=== PATIENT | male | born 1955 | race Caucasian/White ===

== ENCOUNTER 2025-06-24 16:40 | Emergency (ER) | payer OTHER ==
[~2025-06-24] VITALS: Ht 172.7 cm; Wt 75.0 kg
[2025-06-24 17:13] VITALS: O2SAT 95
[2025-06-24] MEDS ORDERED: LIDO1ADH16 TP (20:53)
[2025-06-24] MEDS ORDERED: CYCL10TA21 MT (20:53)
[2025-06-24] MEDS: ACETAMINOPHEN WITH CODEINE 300/30MG TABLET PO ONE (20:56)
[2025-06-24 21:13] VITALS: BP 160/83; PULSE 67; RESP 16; TEMP 37.2; O2SAT 97
== END 2025-06-24 21:25 | disposition home or self-care (01) ==
LOC: ER 16:58
DX: M54.50 Low back pain, unspecified (principal)
CPT/HCPCS: 72100; 73502; 73610; 99285